=== PATIENT | male | born 1985 | race Caucasian/White ===

== ENCOUNTER 2022-05-11 05:01 | Emergency (ER) | payer SELFPAY ==
[2022-05-11 05:03] VITALS: BP 130/82; PULSE 91; RESP 16; TEMP 36.8; O2SAT 100; BMI 28.1
--- NOTE | 2022-05-11 05:09 | HMH.EDGENADL ---
Discharge Plan Disposition Patient Disposition: Home, Self-Care Condition: Good Prescriptions Prescriptions: No Action No Known Home Medications Referrals Follow up/Referrals: Provider,Jet, [Primary Care Provider] - See instructions Clinical Impressions Clinical Impression: Alcohol intoxication Discharge ED Provider: Bc Ordonez General Adult HPI General Chief complaint: Recheck/Abnormal Lab/Rx Stated complaint: exhaustion Time Seen by Provider: 05/11/22 05:05 History of Present Illness HPI narrative: 36-year-old male presents after being found in a car asleep. Please were called to the scene he woke up and said that he felt dizzy and requested to go to the emergency department. In the emergency department he says he got off work at 8:30 PM, left the house twice and drove off the side of the road because his heart has been racing. He denies any chest pain shortness of air headache nausea vomiting diarrhea abdominal pain heart racing or any other concerns at this point. He says he drink 6 beers tonight. Related Data Home Medications Medication Instructions Recorded Confirmed No Known Home Medications 05/11/22 05/11/22 Allergies Allergy/AdvReac Type Severity Reaction Status Date / Time No Known Allergies Allergy Verified 05/11/22 05:11 [facility] Disclaimer: The information contained in this section may have been updated after the patient was seen, as this information can be updated by other users. Social History Smoking Status: Current every day smoker alcohol intake: current current occupational status: employed Travel in the last 8 weeks: Inside the [place] ROS Obtained: Yes All systems reviewed & no additional complaints except as documented Constitutional Constitutional: Reports fatigue, Denies fever(s), Denies headache(s) and Denies weakness Eyes Eyes: Denies dry eyes ENT Ears, Nose, Mouth, and Throat: Denies headache(s), Denies hoarseness and Denies vertigo Cardiovascular Cardiovascular: Denies dyspnea, Denies edema and Denies syncope Respiratory Respiratory: Denies dyspnea Gastrointestinal Gastrointestingal: Denies constipation, hematemesis, nausea or vomiting Genitourinary Male Genitourinary: Denies flank pain Musculoskeletal Musculoskeletal: Denies muscle cramps and Denies tingling Integumentary/Breasts Skin/Breast: Denies redness, Denies furuncle and Denies rash Neurologic Neurologic: Denies headache(s), Denies syncope, Denies tingling, Denies tremor(s), Denies vertigo and Denies weakness Endocrine Endocrine: Reports fatigue Hematologic/Lymphatic Henatologic/Lymphatic: Denies easy bleeding Allergic/Immunologic Allergic/Immunologic: Denies urticaria Physical Exam General General appearance: alert and in no apparent distress Eye Eye exam: Present PERRL and EOMI ENT ENT exam: Present normal exam and normal oropharynx Neck Neck exam: Present normal inspection Chest Chest inspection: Present symmetric chest wall rise Respiratory Respiratory exam: Present normal lung sounds bilaterally; Absent respiratory distress Cardiovascular Cardiovascular exam: Present regular rate and normal rhythm Abdominal Exam Abdominal exam: Present soft; Absent distention, tenderness, guarding, rebound, Tesfaye's sign or tenderness at McBurney's Point Rectal Exam Rectal exam: Present deferred Back Exam Back exam: Present normal inspection Neurological Exam Neurological exam: Present alert and oriented X3 Psychiatric Psychiatric exam: Present normal affect and normal mood Skin Skin exam: Present warm, dry and intact Lymphatic Lymphatic Findings: no adenopathy Medical Decision Making Medical Records Medical records reviewed: Yes I reviewed the patient's medical records. David Inquiry Pt receiving controlled substance: No David was queried for this patient: No Vital Signs: 05/11/22 05:03 05/11/22
[2022-05-11 05:22] LABS: Basophils # 0.1 K/mm3 (0-0.2); Basophils % 1.3 % (0.1-2.0); Eosinophils # 0.2 K/mm3 (0.0-0.4); Eosinophils % 3.5 % (0.1-12.0); Hematocrit 42.8 % (42.0-52.0); Hemoglobin 14.2 g/dL (14.1-18.0); Lymphocytes # 3.1 K/mm3 (0.7-4.5); Lymphocytes % 56.6 % (10-50); Mean Corpuscular HGB Conc 33.1 g/dL (31.8-35.4); Mean Corpuscular Hemoglobin 30.4 pg (27.0-31.2); Mean Platelet Volume 7.2 fl (7.4-10.4); Monocytes # 0.4 K/mm3 (0.1-1.0); Monocytes % 6.8 % (1.7-9.3); Neutrophils # 1.8 K/mm3 (1.8-7.8); Neutrophils % 31.8 % (37.0-80.0); Platelet Count 322 K/mm3 (142-424); Red Blood Count 4.66 M/mm3 (4.60-6.20); Red Cell Distribution Width 12.9 % (11.5-17.5); White Blood Count 5.5 K/mm3 (4.8-10.8)
[2022-05-11 05:23] LABS: Ethyl Alcohol 180 mg/dl (0-10)
[2022-05-11 05:24] VITALS: BP 123/78; PULSE 95; O2SAT 96
[2022-05-11 05:24] LABS: Alanine Aminotransferase 32 U/L (12-78); Albumin Level 4.6 g/dl (3.5-5.0); Albumin/Globulin Ratio 1.6 (1.1-1.8); Alkaline Phosphatase 70 U/L (38-126); Anion Gap 8.7 mEq/L (5-15); Aspartate Amino Transferase 35 U/L (17-59); Bilirubin,Total 0.6 mg/dl (0.2-1.3); Blood Urea Nitrogen 8 mg/dl (9-20); Calcium 8.4 mg/dl (8.4-10.2); Carbon Dioxide 26 mmol/L (22.0-30.0); Chloride 103 mmol/L (98-107); Creatinine Clearance Estimated 149 mL/min (50-200); Estimated Glomerular Filt Rate 110 ml/min (>60); GFR (African American) 133 ML/MIN (>60); Globulin 2.9 g/dL (1.3-3.2); Glucose 103 mg/dl (74-100); Magnesium 2.3 mg/dl (1.6-2.3); Potassium 3.7 mmoL/L (3.5-5.1); Sodium 134 mmol/L (136-145); Total Protein,Serum 7.5 g/dl (6.3-8.2)
[2022-05-11 05:30] VITALS: BP 127/74; PULSE 94; RESP 16; O2SAT 99
--- NOTE | 2022-05-11 05:35 | ECG_ITS ---
APPROVED REPORT Exam: Resting ECG HR:85 bpm ECG Measurements Heart Rate 85 AXES VT 151 P 54 QRSd 98 QRS 57 QT 374 T 44 QTc 417 Conclusion SINUS RHYTHM NORMAL ECG UNCONFIRMED REPORT Electronically signed by : Satinder Elmore MD 05/13/2022 20:03:06
[2022-05-11 05:36] LABS: MANUAL DIFFERENTIAL MANUAL DIFFERENTIAL (MANUAL DIFF)
[2022-05-11 05:55] LABS: Thyroid Stimulating Hormone 1.67 uIU/mL (0.465-4.68)
[2022-05-11 06:00] VITALS: BP 107/69; PULSE 84; RESP 18; O2SAT 98
[2022-05-11 06:13] LABS: Troponin I < 0.01 ng/ml (0.00-0.034)
[2022-05-11 06:23] LABS: Lymphocytes % 53 % (10-50); Monocytes % 7 % (2-9); Neutrophils % 40 % (42-76); Platelet Estimate Normal; RBC Morphology Normal; Total Cells Counted 100
--- NOTE | 2022-05-11 06:25 | PC.NURSE ---
Rounded on patient at this time, updated on plan of care. Pt agreeable and breakfast tray ordered
--- NOTE | 2022-05-11 06:50 | PC.NURSE ---
pt sitting up on side of bed eating breakfast tray
[2022-05-11 07:37] VITALS: BP 110/77; PULSE 79; RESP 20; TEMP 36.8; O2SAT 98
--- NOTE | 2022-05-11 07:41 | SW/DCPLANNER ---
I have arranged [facility] [employer] for this patient. Confirmation number: [id number]
== END 2022-05-11 07:38 | disposition home or self-care (01) ==
PROVIDERS: Emergency Provider Emergency Medicine
DX: F10.929 Alcohol use, unspecified with intoxication, unspecified (principal); F17.210 Nicotine dependence, cigarettes, uncomplicated
CPT/HCPCS: 80053; 83735; 84443; 84484; 85007; 85025; 93005; 96360; 99285